=== PATIENT | female | born 1960 | race Caucasian/White ===

== ENCOUNTER 2019-03-03 07:38 | Day surgery (SDC) | payer OTHER ==
[~2019-03-03] VITALS: Ht 165.1 cm; Wt 71.6 kg
[~2019-03-03 07:38] MED LIST: ALBU90OI; ALBU90OI61 INH; ALPR1 PO; ASPI325EC PO; ATEN25 PO; Allergy Medicin25 MG PO; B-Complex With1 EACH PO; BENZ100A PO; BUDE6HFA INH; Bentyl20 MG PO; CHOL10002 PO; CITA20 PO; CYCL10 PO; DIPH50 PO; DOXY100 PO; ENTRESTO 24 MG1 EACH PO; FERR325 PO; FLOVENT; FLUT220OIA IH; FURO20 PO; HYDACE5 PO; HYDR1TAB94 PO; IRON150C PO; NORT10 PO; OXYC10TA19 PO; OXYC5 PO; PROACE100 PO; PROM25 PO; Phenergan25 M1 PO; RXPROACE PO; SPIRIVA RESPIMAT4 GM INH; SUMA5NI; Sudogest60 MG PO; TIOT18 INH; TOCO400 PO; VERA240ER PO; VERAPAMIL ER120 MG PO
--- NOTE | 2019-03-03 08:45 | NUR ---
03/03/19 0845 Kaylie Do LATE ENTRY: [address] GUAJARDO OF [facility], DR GUAJARDO WANTS DECADRON GIVEN ORDERED.
--- NOTE | 2019-03-03 12:16 | NUR ---
03/03/19 1216 Bozena Espana SITTING IN CHAIR SIPPING PEPSI, EATING CRACKERS. JACKELINE WELL. HAS MINIMAL BLEEDING AND CHANGED GAUZE X1.
== END 2019-03-03 12:15 | disposition home or self-care (01) ==
LOC: ORSCSDS 07:38
PROVIDERS: Otolaryngology
PROC: 09BL7ZZ Excision of Nasal Turbinate, Via Natural or Artificial Opening (ICD-10-PCS; principal; 2019-03-03 08:45)
PROC: 09BM0ZZ Excision of Nasal Septum, Open Approach (ICD-10-PCS; principal; 2019-03-03 08:45)
DX: J34.2 Deviated nasal septum (principal); J34.3 Hypertrophy of nasal turbinates; J44.9 Chronic obstructive pulmonary disease, unspecified; J45.909 Unspecified asthma, uncomplicated; I10 Essential (primary) hypertension; F41.8 Other specified anxiety disorders; Z87.891 Personal history of nicotine dependence; Z79.899 Other long term (current) drug therapy
CPT/HCPCS: J1100; J2250; J2370; J2405; J2704; J3010; J7120

== ENCOUNTER 2019-05-29 16:08 | Emergency (ER) | payer OTHER ==
[~2019-05-29] VITALS: Ht 162.6 cm; Wt 73.9 kg
[2019-05-29 16:45] LABS: BASOPHILS ABSOLUTE AUTO 0.06 K/mm3 (0.00-0.23); BASOPHILS PERCENT AUTO 1 % (0-2); EOSINOPHILS ABSOLUTE AUTO 0.74 K/mm3 (0.00-0.68); EOSINOPHILS PERCENT AUTO 9 % (0-6); Hematocrit 42.6 % (33.0-51.0); Hemoglobin 13.8 g/dL (11.5-16.0); IMMATURE GRAN ABSOLUTE AUTO 0.03 K/mm3 (0.00-0.10); IMMATURE GRAN PERCENT AUTO 0 % (0-1); LYMPHOCYTES ABSOLUTE AUTO 1.59 K/mm3 (0.84-5.20); LYMPHOCYTES PERCENT AUTO 19 % (21-46); MONOCYTES ABSOLUTE AUTO 0.68 K/mm3 (0.16-1.47); MONOCYTES PERCENT AUTO 8 % (4-13); Mean Corpuscular HGB 33.5 pg (26.0-34.0); Mean Corpuscular HGB Conc 32.4 g/dL (31.5-36.5); Mean Corpuscular Volume 103 fL (80-100); Mean Platelet Volume 10.4 fL (9.1-12.4); NEUTROPHILS ABSOLUTE AUTO 5.28 K/mm3 (1.96-9.15); NEUTROPHILS PERCENT AUTO 63 % (41-73); Platelet Count 260 K/mm3 (150-400); RDW Coefficient Variation 12.6 % (11.7-14.2); Red Blood Cell Count 4.12 M/mm3 (3.80-5.20); White Blood Cell Count 8.38 K/mm3 (4.00-11.30)
[2019-05-29 17:12] LABS: Alanine Aminotransfer (ALT/SGP 21 U/L (12-78); Albumin, Blood 3.7 g/dL (3.4-5.0); Albumin/Globulin Ratio 1.2 (0.8-1.8); Alk Phos 64 U/L (50-136); Anion Gap 5 mmol/L (6-16); Aspartate Aminotrans (AST/SGOT 12 U/L (12-37); Bilirubin, Total 0.3 mg/dL (0.1-1.0); Blood Urea Nitrogen 14 mg/dL (8-24); CO2, Blood 27 mmol/L (21-32); Calcium, Blood 8.8 mg/dL (8.5-10.1); Chloride, Blood 110 mmol/L (98-108); Creatinine, Blood 1.08 mg/dL (0.40-1.00); Globulin, Blood 3.1 g/dL (2.2-4.0); Glomerular Filtration Rate 55 (60-); Glucose, Blood 76 mg/dL (70-99); Sodium, Blood 142 mmol/L (136-145); Total Protein, Blood 6.8 g/dL (6.4-8.2); Troponin I <0.015 ng/mL (0.000-0.040)
[2019-05-29] MEDS ORDERED: FUROSEMIDE20 MG PO (17:18)
[2019-05-29] MEDS ORDERED: DIVA500ER PO (17:21)
== END 2019-05-29 17:31 | disposition home or self-care (01) ==
LOC: ER 16:08
PROVIDERS: Emergency Medicine
DX: R07.89 Other chest pain (principal); J44.9 Chronic obstructive pulmonary disease, unspecified; Z87.891 Personal history of nicotine dependence
CPT/HCPCS: 36415; 71045; 80053; 84484; 85025; 93005; 93010; 99285-25

== ENCOUNTER → 2019-08-30 | Outpatient (CLI) | payer OTHER ==
[~2019-08-30] MED LIST changes: +DIVA500ER PO; +FUROSEMIDE20 MG PO
[2019-08-30 16:20] LABS: Alanine Aminotransfer (ALT/SGP 75 U/L (12-78); Anion Gap 9 mmol/L (6-16); Aspartate Aminotrans (AST/SGOT 48 U/L (12-37); Blood Urea Nitrogen 11 mg/dL (8-24); Bun/Creatinine Ratio 9.5 (12.0-20.0); CHOL/HDL RATIO 2.6; CO2, Blood 24 mmol/L (21-32); Calcium, Blood 8.7 mg/dL (8.5-10.1); Chloride, Blood 107 mmol/L (98-108); Cholesterol 205 mg/dL (50-200); Creatinine, Blood 1.16 mg/dL (0.40-1.00); Glomerular Filtration Rate 51 (60-); Glucose, Blood 114 mg/dL (70-99); HDL Cholesterol 78 mg/dL (>39); LDL/HDL RATIO 1.2; Low Density Lipoprotein Chol 97 mg/dL (0-110); Potassium, Blood 3.5 mmol/L (3.5-5.5); Sodium, Blood 140 mmol/L (136-145); Triglycerides 150 mg/dL (30-160); Very Low Density Lipoprot Chol 30 mg/dL (6-32)
== END | disposition home or self-care (01) ==
LOC: LAB 15:30 → LAB SHORT 15:30
PROVIDERS: Internal Medicine Cardiovascular Disease
DX: I42.9 Cardiomyopathy, unspecified (principal); I10 Essential (primary) hypertension
CPT/HCPCS: 80048; 80061; 84443; 84450; 84460

== ENCOUNTER 2020-07-03 09:24 | Day surgery (SDC) | payer OTHER ==
[~2020-07-03] VITALS: Ht 165.1 cm; Wt 78.5 kg
[~2020-07-03 09:24] MED LIST changes: +GABA100 PO
--- NOTE | 2020-07-03 18:56 | NUR ---
PT HAS BEEN STABLE POST OP. HYPERTENSIVE AT TIMES. PT HAS HAD NO PAIN. ABLE TO AMBULATE WITH THERAPY AND STAFF AND SIT IN CHAIR. PT VOIDING WELL. PT HAD EMESIS X1. STATES FEELS BETTER, REQUIRED NO MEDS. PT JACKELINE WATER WELL. PAS, TEDS AND POLAR PACK IN PLACE. AT BEDSIDE, ATTENTIVE. PLAN FOR DISCHARGE TO HOME TOMORROW.
[2020-07-04 05:58] LABS: BASOPHILS ABSOLUTE AUTO 0.02 K/mm3 (0.00-0.23); BASOPHILS PERCENT AUTO 0 % (0-2); EOSINOPHILS ABSOLUTE AUTO 0.24 K/mm3 (0.00-0.68); EOSINOPHILS PERCENT AUTO 3 % (0-6); Hematocrit 41.4 % (33.0-51.0); Hemoglobin 13.1 g/dL (11.5-16.0); IMMATURE GRAN ABSOLUTE AUTO 0.01 K/mm3 (0.00-0.10); IMMATURE GRAN PERCENT AUTO 0 % (0-1); LYMPHOCYTES ABSOLUTE AUTO 2.18 K/mm3 (0.84-5.20); LYMPHOCYTES PERCENT AUTO 24 % (21-46); MONOCYTES ABSOLUTE AUTO 0.81 K/mm3 (0.16-1.47); MONOCYTES PERCENT AUTO 9 % (4-13); Mean Corpuscular HGB 33.2 pg (26.0-34.0); Mean Corpuscular HGB Conc 31.6 g/dL (31.5-36.5); Mean Corpuscular Volume 105 fL (80-100); Mean Platelet Volume 10.3 fL (9.1-12.4); NEUTROPHILS ABSOLUTE AUTO 5.91 K/mm3 (1.96-9.15); NEUTROPHILS PERCENT AUTO 65 % (41-73); Platelet Count 217 K/mm3 (150-400); RDW Coefficient Variation 12.2 % (11.7-14.2); Red Blood Cell Count 3.94 M/mm3 (3.80-5.20); White Blood Cell Count 9.17 K/mm3 (4.00-11.30)
[2020-07-04 06:23] LABS: Bun/Creatinine Ratio 10.2 (12.0-20.0); Calcium, Blood 8.5 mg/dL (8.5-10.1); Creatinine, Blood 1.08 mg/dL (0.40-1.00); Potassium, Blood 3.7 mmol/L (3.5-5.5)
--- NOTE | 2020-07-04 06:54 | NUR ---
SHIFT SUMMARY LYIING SEMI FOWLERS WITH EYES CLOSED. NO SIGNIFICANT CHANGES SINCE START OF SHIFT, HAS RESTED WELL. PAIN MANAGED WITH PRN PAIN MEDS. CONTINENT OF BOWEL AND BLADDER, AMBULATES TO COMMODE. DENIES FURTHER PAIN, DISCOMFORT, OR NEEDS AT THIS TIME. SAFETY MEASURES IN PLACE. WILL CONTINUE TO MONITOR AND GIVE HAND OFF TO ONCOMING SHIFT USING SBAR.
[2020-07-04] MEDS ORDERED: ASPI81CH PO (09:53)
[2020-07-04] MEDS ORDERED: ACET500 PO (09:53)
[2020-07-04] MEDS ORDERED: OXYC5 PO (09:54)
--- NOTE | 2020-07-04 10:31 | NUR ---
DISCHARGE CLEARED THERAPY. PAIN WELL MANAGED. EATING, DRINKING, VOIDING. SCRIPT, DRSGS, & POLAR PACK SENT. ESCORTED OUT VIA W/C.
== END 2020-07-04 10:19 | disposition home or self-care (01) ==
LOC: ORSCMMR 09:24 → ORD 11:30 → SURS 14:11 → ORSCMMR 07-04 10:19
PROVIDERS: Orthopaedic Surgery
PROC: 0SR90JA Replacement of Right Hip Joint with Synthetic Substitute, Uncemented, Open Approach (ICD-10-PCS; principal; 2020-07-03 11:30)
DX: M16.11 Unilateral primary osteoarthritis, right hip (principal); I10 Essential (primary) hypertension; J44.9 Chronic obstructive pulmonary disease, unspecified; G47.33 Obstructive sleep apnea (adult) (pediatric); N18.9 Chronic kidney disease, unspecified; Z87.891 Personal history of nicotine dependence; Z79.899 Other long term (current) drug therapy
CPT/HCPCS: 36415; 72170; 80048; 83735; 85025; 88300; 94760; 97116; 97162; 97530; A9270; C1776; J0171; J0690; J0735; J1885; J2250; J2704; J2710; J2795; J3010; J7120

== ENCOUNTER 2020-12-23 17:01 | Emergency (ER) | payer OTHER ==
[~2020-12-23] VITALS: Ht 162.6 cm; Wt 71.2 kg
[~2020-12-23 17:01] MED LIST changes: +ACET500 PO; -ALBU90OI61 INH; +ASPI81CH PO; -SPIRIVA RESPIMAT4 GM INH
== END 2020-12-23 19:25 | disposition home or self-care (01) ==
LOC: ER 17:01
DX: S63.502A Unspecified sprain of left wrist, initial encounter (principal); J44.9 Chronic obstructive pulmonary disease, unspecified; I10 Essential (primary) hypertension; Z88.5 Allergy status to narcotic agent; Z88.1 Allergy status to other antibiotic agents; Z88.8 Allergy status to other drugs, medicaments and biological substances; Z79.82 Long term (current) use of aspirin; W22.8XXA Striking against or struck by other objects, initial encounter
CPT/HCPCS: 73110; 96372; 99283-25; J1885

== ENCOUNTER 2021-01-10 16:31 | Observation (INO) | payer OTHER ==
[~2021-01-10] VITALS: Ht 162.6 cm; Wt 68.0 kg
[2021-01-10 16:54] LABS: BASOPHILS ABSOLUTE AUTO 0.08 K/mm3 (0.00-0.23); BASOPHILS PERCENT AUTO 1 % (0-2); EOSINOPHILS ABSOLUTE AUTO 0.89 K/mm3 (0.00-0.68); EOSINOPHILS PERCENT AUTO 5 % (0-6); Hematocrit 40.3 % (33.0-51.0); Hemoglobin 13.4 g/dL (11.5-16.0); IMMATURE GRAN ABSOLUTE AUTO 0.09 K/mm3 (0.00-0.10); IMMATURE GRAN PERCENT AUTO 1 % (0-1); LYMPHOCYTES ABSOLUTE AUTO 2.44 K/mm3 (0.84-5.20); LYMPHOCYTES PERCENT AUTO 15 % (21-46); MONOCYTES ABSOLUTE AUTO 0.83 K/mm3 (0.16-1.47); MONOCYTES PERCENT AUTO 5 % (4-13); Mean Corpuscular HGB 32.8 pg (26.0-34.0); Mean Corpuscular HGB Conc 33.3 g/dL (31.5-36.5); Mean Corpuscular Volume 99 fL (80-100); Mean Platelet Volume 10.4 fL (9.1-12.4); NEUTROPHILS ABSOLUTE AUTO 12.33 K/mm3 (1.96-9.15); NEUTROPHILS PERCENT AUTO 74 % (41-73); Platelet Count 300 K/mm3 (150-400); RDW Coefficient Variation 12.3 % (11.7-14.2); RDW Standard Deviation 44.4 fL (35.1-46.3); Red Blood Cell Count 4.08 M/mm3 (3.80-5.20); White Blood Cell Count 16.66 K/mm3 (4.00-11.30)
[2021-01-10 17:27] LABS: Albumin, Blood 3.8 g/dL (3.4-5.0); Albumin/Globulin Ratio 1.3 (0.8-1.8); Bilirubin, Total 0.5 mg/dL (0.1-1.0); Bun/Creatinine Ratio 9.6 (12.0-20.0); Calcium, Blood 9.3 mg/dL (8.5-10.1); Creatinine, Blood 1.46 mg/dL (0.40-1.00); Potassium, Blood 3.1 mmol/L (3.5-5.5); Total Protein, Blood 6.8 g/dL (6.4-8.2)
[2021-01-10] MEDS ORDERED: SYMBICORT 160-4.6 GM INH (20:25)
[2021-01-10] MEDS ORDERED: SPIRIVA RESPIMAT4 G3 INH (20:26)
[2021-01-10] MEDS ORDERED: ALBU90OI61 INH (20:26)
[2021-01-10] MEDS ORDERED: ENTRESTO 24 MG1 EAC2 PO (23:10)
[2021-01-10] MEDS ORDERED: BENADRYL25 MG PO (23:12)
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
--- NOTE | 2021-01-11 06:44 | NUR ---
PT VSS SINCE ARRIVING TO FLOOR. 2LO2 NC PLACED FOR PT COMFORT. LUE REMAINS IN SPLINT, CAP REFILL WNL, PT DENIES N/T. SUTURES TO ALL SITES INTACT. PT REP FEELING BETTER AFTER UPDATE ON . PT NPO POS T MIDNGHT, PLAN TO AWAIT ORTHO CONSULT.
[2021-01-11 07:14] LABS: BASOPHILS ABSOLUTE AUTO 0.03 K/mm3 (0.00-0.23); BASOPHILS PERCENT AUTO 0 % (0-2); EOSINOPHILS ABSOLUTE AUTO 0.05 K/mm3 (0.00-0.68); EOSINOPHILS PERCENT AUTO 0 % (0-6); Hematocrit 38.8 % (33.0-51.0); Hemoglobin 13.1 g/dL (11.5-16.0); IMMATURE GRAN ABSOLUTE AUTO 0.03 K/mm3 (0.00-0.10); IMMATURE GRAN PERCENT AUTO 0 % (0-1); LYMPHOCYTES ABSOLUTE AUTO 1.47 K/mm3 (0.84-5.20); LYMPHOCYTES PERCENT AUTO 12 % (21-46); MONOCYTES ABSOLUTE AUTO 0.84 K/mm3 (0.16-1.47); MONOCYTES PERCENT AUTO 7 % (4-13); Mean Corpuscular HGB 33.5 pg (26.0-34.0); Mean Corpuscular HGB Conc 33.8 g/dL (31.5-36.5); Mean Corpuscular Volume 99 fL (80-100); Mean Platelet Volume 10.3 fL (9.1-12.4); NEUTROPHILS ABSOLUTE AUTO 9.75 K/mm3 (1.96-9.15); NEUTROPHILS PERCENT AUTO 80 % (41-73); Platelet Count 244 K/mm3 (150-400); RDW Coefficient Variation 12.5 % (11.7-14.2); Red Blood Cell Count 3.91 M/mm3 (3.80-5.20); White Blood Cell Count 12.17 K/mm3 (4.00-11.30)
[2021-01-11 07:32] LABS: Bun/Creatinine Ratio 14.4 (12.0-20.0); Calcium, Blood 8.9 mg/dL (8.5-10.1); Creatinine, Blood 1.04 mg/dL (0.40-1.00); Potassium, Blood 3.9 mmol/L (3.5-5.5)
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
[2021-01-11] MEDS ORDERED: FURO20 PO (10:51)
--- NOTE | 2021-01-11 16:00 | NUR ---
dr evans rounding on pt
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
[2021-01-12 05:07] LABS: SARS-Cov-2 (COVID-19) PCR, MMC NEGATIVE (NEGATIVE)
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
--- NOTE | 2021-01-12 11:41 | NUR ---
PT TAKEN TO DAY SURGERY.
--- NOTE | 2021-01-12 12:20 | NUR ---
History, Chart, Medications and Allergies reviewed before start of procedure.Patient confirms NPO status and agrees with scheduled surgery. Pre-Op teaching done. Pt verbalizes understanding.
--- NOTE | 2021-01-12 14:19 | NUR ---
01/12/21 1419 MICAELA,SANDRA PT NOTED TO HAVE MULTIPLES LACERATIONS TO BILATERAL LOWER LEGS, DR COLEMAN DID NOT WANT BILATERAL SCD'S APPLIED DO TO MULTIPLE WOUNDS.
--- NOTE | 2021-01-12 15:22 | NUR ---
LARGE BULKY DRSG TO LEFT ARM FROM HAND TO ABOVE ELBOW CDI ( OP SITE) THERE ARE MULTIPLE OTHER AREAS THAT HAVE GAUZE AND SOME HAVE GUAZE AND [place] OTHER AREAS WITH ABRASIONS NO DRESSING AND SUTURES WITH NO DRESSINGS NOT RELATED TO THIS SURGERY
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
[2021-01-13 04:56] LABS: BASOPHILS ABSOLUTE AUTO 0.01 K/mm3 (0.00-0.23); BASOPHILS PERCENT AUTO 0 % (0-2); EOSINOPHILS PERCENT AUTO 0 % (0-6); Hematocrit 35.8 % (33.0-51.0); Hemoglobin 11.9 g/dL (11.5-16.0); IMMATURE GRAN ABSOLUTE AUTO 0.05 K/mm3 (0.00-0.10); IMMATURE GRAN PERCENT AUTO 1 % (0-1); LYMPHOCYTES ABSOLUTE AUTO 0.68 K/mm3 (0.84-5.20); LYMPHOCYTES PERCENT AUTO 6 % (21-46); MONOCYTES ABSOLUTE AUTO 0.55 K/mm3 (0.16-1.47); MONOCYTES PERCENT AUTO 5 % (4-13); Mean Corpuscular HGB 33.1 pg (26.0-34.0); Mean Corpuscular HGB Conc 33.2 g/dL (31.5-36.5); Mean Corpuscular Volume 100 fL (80-100); Mean Platelet Volume 10.5 fL (9.1-12.4); NEUTROPHILS ABSOLUTE AUTO 9.56 K/mm3 (1.96-9.15); NEUTROPHILS PERCENT AUTO 88 % (41-73); Platelet Count 223 K/mm3 (150-400); RDW Coefficient Variation 12.1 % (11.7-14.2); RDW Standard Deviation 44.2 fL (35.1-46.3); Red Blood Cell Count 3.59 M/mm3 (3.80-5.20); White Blood Cell Count 10.85 K/mm3 (4.00-11.30)
--- NOTE | 2021-01-13 06:19 | NUR ---
SHIFT SUMMARY POD1 L TOTAL SHOULDER, BUSTER WRAP INTACT AND LUE IN SLING, PT ABLE TO WIGGLE FINGERS AND HAS GOOD CAP REFIL, PULSE UNOBTAINABLE DUE TO DRESSING, TOLERATING PO, PAIN WELL MANAGED PER EMAR, STAND PIVOT TRANSFERS TO THE BSC AND MINIMAL ASSISTANCE. NO ACUTE EVENTS THIS SHIFT. CALL LIGHT IN REACH, WILL CTM AND REPORT TO ONCOMING DAY RN.
--- NOTE | 2021-01-13 08:59 | NUR ---
activity: PT WORKING WITH THERAPY TO WALK IN HALLWAY. PAIN MEDICATION GIVEN WITH MORNING MEDS. PT SBA.
[2021-01-13] MEDS ORDERED: CARV6.25 PO (14:54)
[2021-01-13] MEDS ORDERED: HYDR1TAB94 PO (14:55)
--- NOTE | 2021-01-13 15:48 | NUR ---
DISCHARGE: PT DC TO HOME AT THIS TIME WITH FAMILY. PT VERBALIZED UNDERSTANDING OF MEDICATIONS, FOLLOW UP, PROBLEMS TO REPORT AND INSTRUCTIONS. SCRIPT GIVEN. NEW MED CALLED TO PHARMACY OF CHOICE. IV DC'D WNL. DRESSING SUPPLIES GIVEN. PT LEFT VIA WHEELCHAIR TO CAR WITH BELONGINGS.
== END 2021-01-13 15:47 | disposition home or self-care (01) ==
LOC: ER 16:31 → SURS 16:32 → ER 16:32 → SURS 16:32 → ER 01-13 13:33 → SURS 01-13 13:50
PROVIDERS: Emergency Medicine; Nurse Practitioner Acute Care; Orthopaedic Surgery; ADMIT Surgery
DX: S52.372A Galeazzi's fracture of left radius, initial encounter for closed fracture (principal); V29.9XXA Motorcycle rider (driver) (passenger) injured in unspecified traffic accident, initial encounter; E87.6 Hypokalemia; R91.1 Solitary pulmonary nodule; I11.0 Hypertensive heart disease with heart failure; I50.42 Chronic combined systolic (congestive) and diastolic (congestive) heart failure; J44.9 Chronic obstructive pulmonary disease, unspecified; F41.9 Anxiety disorder, unspecified; F32.9 Major depressive disorder, single episode, unspecified; I44.7 Left bundle-branch block, unspecified; Z87.891 Personal history of nicotine dependence; Z88.1 Allergy status to other antibiotic agents; Z88.8 Allergy status to other drugs, medicaments and biological substances; Z88.5 Allergy status to narcotic agent; Z79.899 Other long term (current) drug therapy; Z20.822 Contact with and (suspected) exposure to COVID-19
CPT/HCPCS: 12004; 12013; 29105; 36415; 51701; 70450; 71045; 71260; 72125; 73090; 73110; 73130; 73200; 73562-LT; 73610; 74177; 76377; 80048; 80053; 83690; 85025; 90471; 90714; 93005; 93010; 94640; 94762; 96365-59; 96375-59; 96376; 96376-59; 97116; 97161; 99285-25; A9270; C1713; G0378; J0171; J0690; J1100; J1650; J1885; J2270; J2370; J2405; J2704; J3010; J3480; J7030; J7050; J7120; Q9967; U0004

== ENCOUNTER 2022-03-02 07:31 | Emergency (ER) | payer OTHER ==
[~2022-03-02] VITALS: Ht 162.6 cm; Wt 75.3 kg
[~2022-03-02 07:31] MED LIST changes: +ALBU90OI61 INH; +BENADRYL25 MG PO; +CARV6.25 PO; +ENTRESTO 24 MG1 EAC2 PO; +SPIRIVA RESPIMAT4 G3 INH; +SYMBICORT 160-4.6 GM INH
[2022-03-02] MEDS ORDERED: ALPR1 PO (07:49)
[2022-03-02] MEDS ORDERED: ASPI81CH PO (07:50)
[2022-03-02] MEDS ORDERED: BENZ100A PO (07:51)
[2022-03-02] MEDS ORDERED: CYCL10 PO (07:52)
[2022-03-02] MEDS ORDERED: Flonase 0.05% N16 GM (07:52)
[2022-03-02] MEDS ORDERED: FARXIGA10 MG PO (07:52)
[2022-03-02] MEDS ORDERED: LORA10ER PO (07:53)
[2022-03-02] MEDS ORDERED: SPIR25 PO (07:54)
== END 2022-03-02 08:55 | disposition home or self-care (01) ==
LOC: ER 07:31
DX: S50.12XA Contusion of left forearm, initial encounter (principal); J44.9 Chronic obstructive pulmonary disease, unspecified; I10 Essential (primary) hypertension; Z88.5 Allergy status to narcotic agent; Z88.8 Allergy status to other drugs, medicaments and biological substances; Z88.1 Allergy status to other antibiotic agents; Z79.899 Other long term (current) drug therapy; Z96.642 Presence of left artificial hip joint; Z87.891 Personal history of nicotine dependence; W19.XXXA Unspecified fall, initial encounter
CPT/HCPCS: 73090

== ENCOUNTER 2023-01-25 10:46 | Emergency (ER) | payer OTHER ==
[~2023-01-25] VITALS: Ht 157.5 cm; Wt 61.2 kg
[~2023-01-25 10:46] MED LIST changes: +FARXIGA10 MG PO; +Flonase 0.05% N16 GM; +LORA10ER PO; +SPIR25 PO
[2023-01-25 10:55] VITALS: BP 120/65
[2023-01-25] MEDS ORDERED: Voltaren100 GM TOP (12:30)
== END 2023-01-25 12:49 | disposition home or self-care (01) ==
LOC: ER 10:46
DX: S93.401A Sprain of unspecified ligament of right ankle, initial encounter (principal); M25.551 Pain in right hip; M54.50 Low back pain, unspecified; W10.9XXA Fall (on) (from) unspecified stairs and steps, initial encounter; Z88.1 Allergy status to other antibiotic agents; Z88.5 Allergy status to narcotic agent; Z88.8 Allergy status to other drugs, medicaments and biological substances; Z79.51 Long term (current) use of inhaled steroids; Z79.82 Long term (current) use of aspirin; Z79.899 Other long term (current) drug therapy; J44.9 Chronic obstructive pulmonary disease, unspecified; I10 Essential (primary) hypertension; Z87.891 Personal history of nicotine dependence; Z96.642 Presence of left artificial hip joint
CPT/HCPCS: 73502; 73610; 99284-25; A9270

== ENCOUNTER → 2023-06-30 | Outpatient (CLI) | payer OTHER ==
[~2023-06-30] MED LIST changes: +Voltaren100 GM TOP
== END | disposition home or self-care (01) ==
LOC: LAB 07:39 → LAB SHORT 07:39
DX: D07.1 Carcinoma in situ of vulva (principal)
CPT/HCPCS: 88305

== ENCOUNTER → 2023-06-30 | Outpatient (CLI) | payer OTHER ==
[2023-07-10 01:32] LABS: HPV GENOTYPE 16 Not Detected; HPV GENOTYPE 18 Not Detected; HPV HIGH RISK Not Detected; HPV SOURCE Cervical
== END ==
LOC: LAB 16:15 → LAB SHORT 16:15
PROVIDERS: Advanced Practice Midwife
DX: Z01.419 Encounter for gynecological examination (general) (routine) without abnormal findings (principal)
CPT/HCPCS: 87624; G0123